=== PATIENT | male | born 1965 ===

== ENCOUNTER 2024-10-10 06:30 | Day surgery (SDC) | payer OTHER ==
[2024-10-05 09:00] LABS: URINE APPEARANCE Clear; URINE BILIRRUBIN Negative (NEGATIVE); URINE BLOOD Negative; URINE COLOR Yellow; URINE GLUCOSE Negative (NEGATIVE); URINE KETONE Negative (NEGATIVE); URINE LEUKOCYTE Negative; URINE NITRATE Negative; URINE PROTEIN Negative (NEGATIVE); URINE UROBILINOGEN 0.2 E.U./dl
[2024-10-05 09:03] LABS: BASO % 1.6 % (0.1-1.2); EOS # 0.19 (0.04-0.54); EOS % 5.0 % (0.7-7.0); LYMPH # 1.67 (1.18-3.74); LYMPH % 44.3 % (19.3-53.1); MEAN PLATELET VOLUME 9.20 fl (9.4-12.4); MONO # 0.40 (0.24-0.82); MONO % 10.6 % (4.7-12.5); NEUT # 1.44 (1.56-6.13); NEUT % 38.2 % (34.0-71.1); RED CELL DISTRIBUTION WIDTH 12.8 % (11.6-14.4)
[2024-10-05 09:04] LABS: URINE WBC 6.2 uL (0.0-23.2)
[2024-10-05 09:06] LABS: URINE BACTERIA 2.4 uL (0.0-1933); URINE CAST 0.00 uL (0.0-1.40); URINE EPITHELIAL CELLS 0.4 uL (0.0-38.8); URINE RBC 0.7 uL (0.0-20.8)
[2024-10-05 09:20] LABS: INR 0.98
[2024-10-05 09:21] VITALS: BP 144/76
[2024-10-05 09:59] LABS: ALT/SGPT 24.0 U/L (12-78); AST/SGOT 27.0 U/L (15-37); BILIRUBIN TOTAL 0.81 mg/dL (0.3-1.2); BUN CREA RATIO 11.0 (7.0-25.0); CREATININE SERUM 0.93 mg/dL (0.70-1.30); GFR 82.6; GLOBULINA 3.8 G/DL (2.4-3.5); GLUCOSE FASTING 90.0 mg/dL (65-100); OSMOLALITY SERUM 282.0 MOSM/KG (275-295)
[~2024-10-10] VITALS: Ht 180.3 cm; Wt 59.0 kg
[2024-10-10] MEDS ORDERED: LIDOCAINE HCL 1%/EPINEPHRINE 20ML VIAL IJ ONE (10:30)
== END 2024-10-10 13:30 | disposition home or self-care (01) ==
LOC: CIR.AMB 06:30
PROVIDERS: ATTEND Surgery
DX: N62 Hypertrophy of breast (principal)